=== PATIENT | male | born 1960 | race Caucasian/White ===

== ENCOUNTER 2016-05-21 23:29 | Inpatient (IN) ==
--- NOTE | 2016-05-22 00:27 | Emergency Department Note ---
Casey Valencia Brittany, am scribing for, and in the presence of, Belle Singh DO 00:18. Francisco Valencia Catherine, DO, personally performed the services described in this documentation, ascribed by Josette Peña in my presence, and it is both accurate and complete . Arrival - Arrival Chief Complaint: Abdominal / Flank Pain Stated Complaint: ABD pain ED Nursing Triage Note: Patient transfered from [facility] for ABD pain related to [place]. Mode of Arrival: Stretcher Limitations: No Limitations Source: Patient, RN Notes Reviewed - History of Present Illness HPI Narrative: Patient is a 56 y/o white male presenting to the ED by EMS from [facility] for further evaluation of appendicitis. Patient states that this afternoon he began to have some RLQ abdominal pain. He reports having some associated nausea, but denies any vomiting, fever, or chills with this. Patient notes having two good bowel movements this morning. He states that he has been on a low carb diet lately, but did have a cheat meal today and last ate some cereal at 1400. states that while at [facility], patient had a CT abdomen with and without contrast performed and reports that CT with contrast showed patient may have early appendicitis. Patient as of now states that he is not having any abdominal pain and is not nauseated. Patient states that he had a Cardiac Catheterization with stent placement September of [address] Whitt. Patient denies history of CVA or seizure. Patient is a current everyday smoker. He states that primary care provider is whoever is at [facility] when he goes. Patient has no other complaint/pain. Onset (ago): hour(s) Consistency: intermittent Severity: moderate Severity scale (1-10): 5 Quality: stabbing, sharp Allergies/Adverse Reactions: Allergies Allergy/AdvReac Type Severity Reaction Status Date / Time No Known Allergies Allergy Unverified 05/21/16 23:47 Home Medications: Home Medications Medication Instructions Recorded Confirmed Type Aspirin Chew Tab 81 mg PO DAILY tablet 09/26/14 Rx Atorvastatin [Lipitor] 20 mg PO BEDTIME #30 tablet 09/26/14 Rx Carvedilol [Coreg] 6.25 mg PO BID #60 tablet 09/26/14 Rx Lisinopril 2.5 mg PO DAILY #30 tablet 09/26/14 Rx Ticagrelor [Brilinta] 90 mg PO BID #60 tablet 09/26/14 Rx buPROPion [Wellbutrin] 75 mg PO BID #60 tablet 09/26/14 Rx Aspirin [Ecotrin] 325 mg PO DAILY 05/21/16 05/21/16 History Bupropion HCl [Bupropion HCl Sr] 150 mg PO BID 05/21/16 05/21/16 History Carvedilol 6.25 mg PO BID 05/21/16 05/21/16 History Clobetasol 0.05% Cream [Temovate 1 applic INTRADERM DAILY 05/21/16 05/21/16 History 0.0% Cream] Dexamethasone [Dexamethasone Tab] 0.75 mg PO DAILY 05/21/16 05/21/16 History Meloxicam [Mobic] 15 mg PO DAILY 05/21/16 05/21/16 History Methocarbamol 750 mg PO TID 05/21/16 05/21/16 History Rosuvastatin Calcium [Crestor] 5 mg PO DAILY 05/21/16 05/21/16 History Tramadol HCl [Tramadol Tab] 50 mg PO Q4H PRN 05/21/16 05/21/16 History Review of System - Review of System ROS unobtainable: due to dementia - Review of System Constitutional: Absent: chills, fever Head/Ears/Nose/Throat: Absent: earache Respiratory: Absent: cough, respiratory distress Cardiovascular: Absent: chest pain, palpitations, dyspnea on exertion, orthopnea , syncope Gastrointestinal: Present: abdominal pain, nausea. Absent: vomiting, diarrhea, constipation Genitourinary female: Absent: dysuria, frequency, urgency Musculoskeletal: Absent: back pain Neurological: Absent: headache, weakness Psychiatric: Present: depression. Absent: anxiety Medical,Surgical,& Family Hx - Medical History Cardio: History of: CAD, Hypertension Psychological: History of: Depression Endocrine: History of: Dyslipidemia - Surgical History Cardiac Surgeries: Sugical HX of: Cardiac Catheterization - Family History Family History: Reports;: Family Diabetes, Family Heart Disease - Social History Smoking Status: Current every day smoker Frequency of Alcohol Use: None Type of Drug Use: None Marital Status: Lives With:: Spouse Functional capacity: independent ambulation Exam Vital Signs: Vital Signs Temperature 98.6 F 05/21/16 23:40 Pulse Rate 90 05/21/16 23:40 Respiratory Rate 18 05/21/16 23:40 Blood Pressure 133/71 05/21/16 23:40 O2 Sat by Pulse Oximetry 97 05/21/16 23:40 - General General appearance: alert, in no apparent distress - Head Head exam: Present: atraumatic, normocephalic - Eye Eye exam: Present: normal appearance, PERRL, EOMI - ENT ENT exam: Present: mucous membranes moist, TM's normal bilaterally - Neck Neck exam: Present: normal inspection, full ROM, trachea midline. Absent: tenderness - Chest Chest inspection: Present: normal inspection, symmetric chest wall rise. Absent : tenderness - Respiratory Respiratory exam: Present: normal lung sounds bilaterally. Absent: rales, rhonchi, wheezes - Cardiovascular Cardiovascular exam: Present: regular rate, normal rhythm, normal heart sounds. Absent: murmur, rubs, gallop - Abdominal Exam Abdominal exam: Present: soft, tenderness (RLQ), normal bowel sounds, tenderness at McBurney's Point. Absent: distention, guarding, rebound, diminished bowel sounds - Extremities Exam Extremities exam: Present: normal inspection, full ROM. Absent: tenderness - Back Exam Back exam: Present: normal inspection, full ROM. Absent: tenderness - Neurological Exam Neurological exam: Present: alert, oriented X3 - Psychiatric Psychiatric exam: Present: normal affect - Skin Skin exam: Present: warm, dry, intact, normal color Course Course Narrative: he reports his pain has gone after the toradol. He is only taking the aspirin at this point - no other blood thinners . He is aware that he will be admitted tonight. - Consultations Consultation #1: Dr. Blackwood Time: 00:22 (admission to obs with cardiology consult) Results - Labs Lab Results: I have reviewed the patients labs - Diagnostic Findings Procedure: CT Abdomen and Pelvis: report reviewed by me (early appendicitis) Disposition Clinical Impression: RLQ abdominal pain Case discussed with: patient, patient's family Disposition: Still a Patient Condition: Stable Time of Disposition: 00:27
[2016-05-22] MEDS ORDERED: ONDANSETRON 4 MG/2 ML VIAL IV PRN ×3 (00:29→14:39)
[2016-05-22] MEDS ORDERED: SODIUM CHLORIDE 0.9% 1,000 ML IV SCH (00:30)
[2016-05-22] MEDS ORDERED: HYDROmorphone 2 MG/1 ML VIAL IV PRN ×3 (00:30→14:39)
[2016-05-22] MEDS ORDERED: cefOXitin 1,000 MG in SODIUM CHLORIDE 0.9% 100 ML IV SCH (01:00)
[2016-05-22] MEDS: metroNIDAZOLE INJ 500 MG in PREMIX 1 EACH IV SCH ×3 (03:47→16:34)
[2016-05-22] MEDS ORDERED: ACETAMINOPHEN 325 MG TABLET PO PRN (05:10)
--- NOTE | 2016-05-22 05:26 | General Surg History&Physical ---
Assessment and Plan - Time spent with patient Time spent with patient: Less than 30 minutes (1) RLQ abdominal pain Status: Acute Assessment and plan: Impression: Abdominal pain right lower quadrant possibly secondary to early appendicitis 2. Coronary artery disease status post stent Plan: 1. We'll get cardiology to look at him and clear him 2. We'll plan surgery later today once cardiology has seen. Current Visit: Yes History of Present Illness Chief complaint: onset of abdominal pain right lower quadrant possible early appendicitis History of present illness: Ms. Schultz is a 56 year old female white who essentially been in pretty good health except 2 years ago had to undergo a stent placement for early myocardial infarction done by Dr. Whitt. He was initially on an antiplatelet medication but has been taken off that is just on aspirin now. He apparently has been doing pretty well even ovaries had a gallbladder removed 2 years ago also. Yesterday he had the gradual onset of abdominal pain that got worse primarily in the right lower quadrant area. He was seen in [facility] where studies there showed a white count of 14,[address] scan was initially done for kidney stones which was negative. The CT scan though suggest some stranding about the area of the appendix. He is admitted to put on some IV antibiotics at this time. On examination this morning he remains tender primarily in the right lower quadrant with guarding present. He appears that this is probably truly an appendicitis. I discussed with them the options of IV antibiotics treatment versus surgery and he saw her up for surgery. Because of his coronary artery problem will need to get cardiology to see him and clear him up for surgery. Home Medications Medication Instructions Recorded Confirmed Type Aspirin Chew Tab 81 mg PO DAILY tablet 09/26/14 05/22/16 Rx Atorvastatin [Lipitor] 20 mg PO BEDTIME #30 tablet 09/26/14 05/22/16 Rx Carvedilol [Coreg] 6.25 mg PO BID #60 tablet 09/26/14 05/22/16 Rx Lisinopril 2.5 mg PO DAILY #30 tablet 09/26/14 05/22/16 Rx Ticagrelor [Brilinta] 90 mg PO BID #60 tablet 09/26/14 05/22/16 Rx buPROPion [Wellbutrin] 75 mg PO BID #60 tablet 09/26/14 05/22/16 Rx Aspirin [Ecotrin] 325 mg PO DAILY 05/21/16 05/21/16 History Bupropion HCl [Bupropion HCl Sr] 150 mg PO BID 05/21/16 05/21/16 History Carvedilol 6.25 mg PO BID 05/21/16 05/21/16 History Clobetasol 0.05% Cream [Temovate 1 applic INTRADERM DAILY 05/21/16 05/21/16 History 0.0% Cream] Dexamethasone [Dexamethasone Tab] 0.75 mg PO DAILY 05/21/16 05/21/16 History Meloxicam [Mobic] 15 mg PO DAILY 05/21/16 05/21/16 History Methocarbamol 750 mg PO TID 05/21/16 05/21/16 History Rosuvastatin Calcium [Crestor] 5 mg PO DAILY 05/21/16 05/21/16 History Tramadol HCl [Tramadol Tab] 50 mg PO Q4H PRN 05/21/16 05/21/16 History Allergies Allergy/AdvReac Type Severity Reaction Status Date / Time No Known Allergies Allergy Unverified 05/21/16 23:47 Medical,Surgical,& Family Hx - Medical History Cardio: History of: CAD (stent placed 09/24/2014), Hypertension Psychological: History of: Depression Endocrine: History of: Dyslipidemia Respiratory: History of: COPD Musculoskeletal: History of: Musculoskeletal Problems (arthritis possibly appointment with user support specialist june/2016) - Surgical History Cardiac Surgeries: Sugical HX of: Cardiac Catheterization HEENT Surgeries: Patient denies: Tonsilectomy & Adenoidectomy (tonsilectomy) Abdominal Surgeries: Surgical HX of: Cholecystectomy (APR 22 2014) Orthopedic Surgeries: Surgical HX of;: Orthopedic Surgery (carpal tunnel bilateral wrists) - Family History Family History: Reports;: Family Cancer (mother breast cancer), Family Diabetes (father), Family Heart Disease (father), Family Hematology (father), Family Hypertension (father), Family Stroke (mother) - Social History Smoking Status: Current every day smoker Frequency of Alcohol Use: None Type of Drug Use: None Exam - Constitutional Vitals: Period Temp Pulse Resp BP Sys/Corral Pulse Ox Last 24 Hr 97.8 F 78 14 131/74 93 General appearance: no acute distress - Head Head exam: Present: normal inspection - ENT ENT exam: Present: normal exam - Neck Neck exam: Present: normal inspection - Respiratory Respiratory exam: Present: clear to auscultation bilaterally, rales - Cardiovascular Cardiovascular exam: Present: RRR - GI/Abdominal GI/Abdominal exam: Present: guarding (right lower quadrant), hypoactive bowel sounds, tenderness (right lower quadrant), soft. Absent: distended - Extremities Exam Extremities exam: Present: normal inspection - Back Exam Back exam: Present: normal inspection - Neurological Exam Neurological exam: Present: alert, oriented X3, CN II-XII intact - Skin Skin exam: Present: normal color, warm, dry 12 point system: reviewed and no additional remarkable complaints except as stated Quality Measures - VTE Contraindication to Pharmacological VTE Prophylaxis: High Risk of Bleeding
--- NOTE | 2016-05-22 05:45 | EKG Report ---
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
[2016-05-22] MEDS: DEXTROSE 5% NACL 0.45% 1,000 ML IV SCH ×3 (07:21→23:33)
[2016-05-22 08:58] LABS: Basophils # 0.1 10*3/uL (0.0-0.2); Basophils % 0.6 % (0.0-0.8); Eosinophils # 0.2 10*3/uL (0.0-0.87); Hematocrit 44.3 VOL% (35.7-47.0); Hemoglobin 14.5 GM/DL (12.0-16.0); Immature Granulocytes % 0.3 %; Immature Granulocytes Absolute 0.03 #; Lymphocytes % 28.7 % (21.3-54.2); Mean Corpuscular HGB Conc 32.7 GM/DL (32-36); Mean Corpuscular Hemoglobin 29 PG (27-34); Mean Corpuscular Volume 87.2 FL (87-102); Mean Platelet Volume 11.3 FL (9.6-12.0); Monocytes # 0.9 10*3/uL (0.11-0.8); Monocytes % 8.6 % (1.7-12.7); Neutrophils # 6.2 10*3/uL (1.4-7.4); Neutrophils % 59.8 % (38.7-73.9); Platelet Count 160 T/CUMM (130-400); Red Blood Count 5.08 MC/CUMM (3.8-5.5); Red Cell Distribution Width 13.5 % (9.3-17.3); White Blood Count 10.3 T/CUMM (4-12)
[2016-05-22] MEDS ORDERED: PANTOPRAZOLE 40 MG VIAL IV SCH (09:00)
[2016-05-22 09:22] LABS: Calcium 8.8 MG/DL (8.5-10.1); Osmolality,Calculated 287.8 MOS/KG (273-304); Potassium 4.1 MMOL/L (3.5-5.1)
[2016-05-22] MEDS: DEXAMETHASONE 0.5 MG TABLET PO SCH (09:42)
[2016-05-22] MEDS: buPROPion 75 MG TABLET PO SCH ×2 (09:43→21:56)
--- NOTE | 2016-05-22 09:50 | XRay Report ---
History: Respiratory preop evaluation. Appendicitis Date: 05/22/2016 Study: Chest x-ray AP portable Comparison exam: Chest x-ray 05/21/2016 The cardiomediastinal silhouette and pulmonary vasculature are unremarkable. There is some minor strandy subsegmental atelectasis in the right lung base. The lungs and pleural spaces are otherwise clear. Osseous structures are unchanged. Impression: Mild strandy subsegmental atelectasis right lung base. Otherwise unremarkable and unchanged PROCEDURE INTERPRETED AT [facility] DEPARTMENT OF RADIOLOGY Final Report Signed by: Dr. Christina Duke
[2016-05-22] MEDS: CARVEDILOL 6.25 MG TABLET PO SCH ×2 (10:07→21:56)
[2016-05-22] MEDS: LISINOPRIL 2.5 MG TABLET PO SCH (10:07)
--- NOTE | 2016-05-22 10:36 | Cardiology Consult Note ---
Assessment and Plan (1) Coronary artery disease Status: Chronic Assessment and plan: Intracoronary stent placed RCA September 2014 since is done well and is on aspirin and other medication. He's had no symptomatology for angina is very active. Current Visit: Yes (2) Pre-operative cardiovascular examination Status: Acute Assessment and plan: This patient for possible appendectomy would be at low cardiovascular risk. Current Visit: Yes (3) Tobacco abuse Status: Chronic Assessment and plan: Unfortunately continues to smoke and we discussed this. Current Visit: Yes (4) Abdominal pain Status: Acute Assessment and plan: Possible underlying appendicitis. Current Visit: Yes History of Present Illness - Data of Consult Patient: known to practice within the last 3 years Consult date: 05/22/16 Requesting Physician: Kunal Blackwood - Consult Narrative Reason for consult: preoperative evaluation History of present illness: Ms. Schultz is a 56 year old female known coronary disease having had stent RCA by Dr. Dr. Whitt September 2014. He was treated with dual antiplatelet therapy for year. He has now been on dual antiplatelet therapy for a long time but remains on aspirin. The patient is very active at work but does not exercise. He's had no angina or anginal equivalent. He's had no heart failure symptoms of PND orthopnea or edema. He's had no syncope or near syncope or palpitations. He's generally been in good health until having abdominal pain yesterday the right lower quadrant with a question of possible appendicitis with appendectomy as a possibility. His ECG does not reveal any acute changes. He is now pacific ST-T abnormalities. This patient would be at low cardiac risk based on his present clinical status for planned abdominal surgery. No further cardiac evaluation is indicated prior to his surgery. CC: Kunal Blackwood MD - Home Medications and Allergies Home Medications: Home Medications Medication Instructions Recorded Confirmed Type Aspirin Chew Tab 81 mg PO DAILY tablet 09/26/14 05/22/16 Rx Atorvastatin [Lipitor] 20 mg PO BEDTIME #30 tablet 09/26/14 05/22/16 Rx Carvedilol [Coreg] 6.25 mg PO BID #60 tablet 09/26/14 05/22/16 Rx Lisinopril 2.5 mg PO DAILY #30 tablet 09/26/14 05/22/16 Rx Ticagrelor [Brilinta] 90 mg PO BID #60 tablet 09/26/14 05/22/16 Rx buPROPion [Wellbutrin] 75 mg PO BID #60 tablet 09/26/14 05/22/16 Rx Aspirin [Ecotrin] 325 mg PO DAILY 05/21/16 05/21/16 History Bupropion HCl [Bupropion HCl Sr] 150 mg PO BID 05/21/16 05/21/16 History Carvedilol 6.25 mg PO BID 05/21/16 05/21/16 History Clobetasol 0.05% Cream [Temovate 1 applic INTRADERM DAILY 05/21/16 05/21/16 History 0.0% Cream] Dexamethasone [Dexamethasone Tab] 0.75 mg PO DAILY 05/21/16 05/21/16 History Meloxicam [Mobic] 15 mg PO DAILY 05/21/16 05/21/16 History Methocarbamol 750 mg PO TID 05/21/16 05/21/16 History Rosuvastatin Calcium [Crestor] 5 mg PO DAILY 05/21/16 05/21/16 History Tramadol HCl [Tramadol Tab] 50 mg PO Q4H PRN 05/21/16 05/21/16 History Allergies/Adverse Reactions: Allergies Allergy/AdvReac Type Severity Reaction Status Date / Time No Known Allergies Allergy Unverified 05/21/16 23:47 12 point system: reviewed and no additional remarkable complaints except as stated Review of systems: Constitutional: Denies anorexia, chills, fatigue, fever, frequent falls, night sweats, weight gain, weight loss Eyes: Denies visual changes or loss of vision Ears: Denies decreased hearing, vertigo Nose, mouth and throat: Denies dysphagia, epistaxis, headaches, neck pain, tongue swelling, Neck: Denies thyromegaly or masses. No stiffness. Cardiovascular: as per HPI Respiratory: Denies cough, dyspnea, hemoptysis, dyspnea on exertion, wheezing, snoring Gastrointestinal: Complains of abdominal pain as discussed in history present illness with possible appendicitis. Denies constipation, dyspepsia, dysphagia, hematemesis, hematochezia, melena, nausea, vomiting Genitourinary: Denies dysuria, hematuria, nocturia Musculoskeletal: Denies arthralgias, joint swelling, muscle weakness, myalgias Neurological: denies abnormal gait, abnormal speech, confusion, convulsions, frequent falls, headaches, memory loss, syncope Psychiatric: Denies anxiety, confusion, depression Endocrine: Denies cold intolerance, fatigue, heat intolerance Hematologic/Lymphatic: Denies easy bleeding, easy bruising Dermatologic: Denies Rash, itching, shingles Medical,Surgical,& Family Hx - Medical History Cardio: History of: CAD (stent placed 09/24/2014), Hypertension Psychological: History of: Depression Endocrine: History of: Dyslipidemia Respiratory: History of: COPD Musculoskeletal: History of: Musculoskeletal Problems (arthritis possibly appointment with first assistant june/2016) - Surgical History Cardiac Surgeries: Sugical HX of: Cardiac Catheterization HEENT Surgeries: Patient denies: Tonsilectomy & Adenoidectomy (tonsilectomy) Abdominal Surgeries: Surgical HX of: Cholecystectomy (APR 22 2014) Orthopedic Surgeries: Surgical HX of;: Orthopedic Surgery (carpal tunnel bilateral wrists) - Family History Family History: Reports;: Family Cancer (mother breast cancer), Family Diabetes (father), Family Heart Disease (father), Family Hematology (father), Family Hypertension (father), Family Stroke (mother) - Social History Smoking Status: Current every day smoker Frequency of Alcohol Use: None Type of Drug Use: None Physical Examination Vital Signs Temp Pulse Resp BP 98.1 F 85 18 127/80 05/21/16 23:29 05/21/16 23:29 05/21/16 23:29 05/21/16 23:29 Other: General appearance: normal weight, no acute distress Head exam: normal inspection, atraumatic Eye exam: Pupils are equal and reactive. EOMI. There is no trauma. Ear exam: Anatomically normal. Normal auditory acuity to conversation. Oral exam: No significant oral lesions. Neck exam: normal inspection no JVD. No carotid bruit. Trachea is in midline. Respiratory exam: clear to auscultation bilaterally posteriorly and anteriorly with good air movement. No rales, rhonchi or wheezes. Cardiovascular exam: regular rate and rhythm, no murmur or gallop or rub. No precordial lift. No bruits over the major arteries. Chest wall/torso: Anatomically normal. No tenderness, deformity Peripheral Pulses: 2+ throughout. GI/Abdominal exam: normal bowel sounds, soft but has tenderness with palpation. Musculoskeletal/Extremities exam: normal inspection without edema or cyanosis. No deformities or trauma. Neurological exam: alert, oriented X3. There is no gross neurologic deficits. Psychiatric exam: normal affect, normal mood. Cognitive function is grossly intact. Skin exam: normal color, warm. No rashes or other skin lesions. Result/EKG - Labs CBC & BMP: 05/22/16 08:33 05/22/16 08:33 Labs: Laboratory Results - last 24 hr 05/22/16 05/22/16 08:33 08:33 WBC 10.3 RBC 5.08 Hgb 14.5 Hct 44.3 MCV 87.2 MCH 29 MCHC 32.7 RDW 13.5 Plt Count 160 MPV 11.3 Neut % (Auto) 59.8 Lymph % (Auto) 28.7 [place] % (Auto) 8.6 Eos % (Auto) 2.0 Baso % (Auto) 0.6 Neut # (Auto) 6.2 Lymph # (Auto) 3.0 [place] # (Auto) 0.9 H Eos # (Auto) 0.2 Baso # (Auto) 0.1 Immature Gran % 0.3 Nucleated RBC % 0.0 Immature Gran # 0.03 Nucleated RBCs # 0.00 Sodium 144 Potassium 4.1 Chloride 110 H Carbon Dioxide 26 Anion Gap 12.1 BUN 15 Creatinine 0.80 GFR Calculation 100 BUN/Creatinine Ratio 18.00 Glucose 114 H Calculated Osmolality 287.8 Calcium 8.8 - Impressions Impressions: ECG with normal sinus rhythm with nonspecific ST flattening essentially normal study. Quality Measures - VTE Contraindication to Pharmacological VTE Prophylaxis: High Risk of Bleeding
[2016-05-22] MEDS ORDERED: BUPIVACAINE MPF 0.25% /EPI 30 ML VIAL ONE (13:02)
[2016-05-22] MEDS ORDERED: LIDOCAINE 2% 5 ML VIAL ONE (13:21)
[2016-05-22] MEDS ORDERED: NEOSTIGMINE 10 MG/10 ML VIAL ONE (13:21)
[2016-05-22] MEDS: LACTATED RINGERS 1,000 ML IV SCH ×2 (13:21→14:41)
[2016-05-22] MEDS ORDERED: KETOROLAC 30 MG/1 ML VIAL ONE (13:21)
[2016-05-22] MEDS ORDERED: PHENYLEPHRINE 1 MG/10 ML SYRINGE IV ONE (13:21)
[2016-05-22] MEDS ORDERED: ONDANSETRON 4 MG/2 ML VIAL ONE (13:21)
[2016-05-22] MEDS ORDERED: ROCURONIUM 100 MG/10 ML VIAL IV ONE (13:21)
[2016-05-22] MEDS ORDERED: GLYCOPYRROLATE 0.4 MG/2 ML VIAL ONE (13:21)
[2016-05-22] MEDS ORDERED: DEXAMETHASONE 10 MG/1 ML VIAL ONE (13:21)
[2016-05-22] MEDS ORDERED: PROPOFOL 200 MG/20 ML VIAL IV ONE (13:21)
[2016-05-22] MEDS ORDERED: TISSUE ADHESIVE 1 EACH APPLICATOR TOP ONE (14:01)
--- NOTE | 2016-05-22 14:28 | Operative Note ---
Date of procedure: 05/22/16 Pre-op diagnosis: abdominal pain probable appendicitis Post-op diagnosis: other (acute appendicitis) Procedure: Operative note: Preoperative diagnosis: Abdominal pain probably secondary to early appendicitis Postop diagnosis: Acute appendicitis of the distal one third of the appendix Procedure: Lap scopic appendectomy. Surgeon Dr. Blackwood Production Inspector Lyndsay Faustin [facility] Anesthesia was general with local Brief history: 56-year-old white male comes in with the onset of abdominal pain gradual and now tender with localization in the right lower quadrant. Initial CT was unremarkable but had a suggestion of early stranding possible appendicitis. His white count 14,000 and he was tender with localization in the right lower quadrant. Because of the stent that he had 2 years ago we had cardiology see him and they cleared him and I felt we needed go ahead surgery because he seemed to typical of appendicitis and he did not want favor antibiotic treatment. Procedure: Patient supine position prepped and draped in a sterile fashion Timeout and antibiotics completed approach the area of the umbilicus where we infiltrated just above with the local anesthetic. With knife we made an incision to the skin subcutaneous tissue down to the level of the fascia. I incised the fascia and carefully dissected until I entered the. No cavity under direct vision. 5 mm trocar was placed in the abdomen was filled with 3 L of CO2. Once that was done we put her scope in began look ran nothing remarkable could easily be seen at this point time couldn't see the appendix no fluid present at this time no unusual inflammation or adhesions present. At that point we put him in Trendelenburg and we placed another 5 mm trocar at the mid hypogastric area under direct vision. An it with an atraumatic grasper I began to move the cecum around it we could see the tip of the appendix in the right lower quadrant. It appeared to be twisted somewhat and had bound down to the retroperitoneal space. At that point we placed a 12 mm trocar in at the anterior axillary line under direct vision and out cavus chance to grasp indifferently to elevated up at that point I had to go ahead and take scissors and dissected the peritoneal attachments lateral to the appendix and ordered to mobilize it. Once these it specimens were mobile were cut and the appendix mobilized up I was able to go across the mesoappendix twice with a vascular any GI stapler to divide the mesoappendix. With that done we went across the base of the appendix with a blue and a GI stapler. We then placed the appendix in the Endo Catch bag and brought it out through the lateral port. Went back in washed irrigated and no unusual bleeding was seen or fluid pockets at this time. With that we then pulled the lateral port and closed that with an Endo Close of 0 Monocryl. Once that was closed we pulled our other ports we close the umbilical port with interrupted 0 Monocryl suture and we closed the subcutaneous tissue 3-0 Vicryl closed the skin running 4-0 Monocryl with Dermabond applied. Patient was taken recovery room. Estimated blood loss 10 mL Sponge count correct 2 Drains none Complications none Condition stable satisfactory Anesthesia: GETA, local (0.25% Marcaine with epinephrine mixed [id number] 1% Xylocaine plain into the trocar sites) Surgeon / Physician: Kunal Blackwood Production Inspector: Lyndsay Faustin Estimated blood loss: other (10 mL) Specimens: other (appendix) Condition: stable Disposition: floor Results - Labs CBC & BMP: 05/22/16 08:33 05/22/16 08:33 Discharge Plan - Discharge Medications No Action Aspirin Chew Tab 81 mg PO DAILY tablet Ticagrelor [Brilinta] 90 mg PO BID #60 tablet Carvedilol [Coreg] 6.25 mg PO BID #60 tablet Atorvastatin [Lipitor] 20 mg PO BEDTIME #30 tablet Lisinopril 2.5 mg PO DAILY #30 tablet buPROPion [Wellbutrin] 75 mg PO BID #60 tablet Tramadol HCl [Tramadol Tab] 50 mg PO Q4H PRN PRN Reason: Pain Rosuvastatin Calcium [Crestor] 5 mg PO DAILY Meloxicam [Mobic] 15 mg PO DAILY Dexamethasone [Dexamethasone Tab] 0.75 mg PO DAILY Clobetasol 0.05% Cream [Temovate 0.0% Cream] 1 applic INTRADERM DAILY Carvedilol 6.25 mg PO BID Aspirin [Ecotrin] 325 mg PO DAILY Methocarbamol 750 mg PO TID Bupropion HCl [Bupropion HCl Sr] 150 mg PO BID - Follow Up or Referral - Forms/Instructions
[2016-05-22] MEDS ORDERED: ALBUTEROL 2.5 MG/3 ML NEB RESP TX ONE (14:34)
--- NOTE | 2016-05-22 14:35 | Anesthesia ---
Anesthesia Post OP - Post Ansesthetic Evaluation Resp: other (coughing, hob elevated 30, albuterol resp. neb ordered)
[2016-05-22] MEDS ORDERED: SEVOFLURANE 1 UNIT/15 MINUTE INH ONE (14:38)
[2016-05-22] MEDS ORDERED: MIDAZOLAM 2 MG/2 ML VIAL ONE (14:38)
[2016-05-22] MEDS ORDERED: HYDROmorphone 2 MG/1 ML VIAL ONE (14:38)
[2016-05-22] MEDS ORDERED: fentaNYL 100 MCG/2 ML VIAL ONE (14:39)
[2016-05-22] MEDS: KETOROLAC 15 MG/1 ML VIAL IV SCH ×2 (16:29→21:51)
[2016-05-22] MEDS: CLOBETASOL 0.05% CREAM 15 GM TUBE TOP SCH (21:46)
[2016-05-23] MEDS: metroNIDAZOLE INJ 500 MG in PREMIX 1 EACH IV SCH ×2 (00:22→09:43)
[2016-05-23] MEDS: KETOROLAC 15 MG/1 ML VIAL IV SCH ×2 (02:45→09:00)
[2016-05-23 05:25] LABS: Basophils % 0.3 % (0.0-0.8); Eosinophils % 0.1 % (0.00-10.9); Hematocrit 41.1 VOL% (42.0-52.0); Hemoglobin 13.6 GM/DL (14.0-18.0); Immature Granulocytes % 0.4 %; Immature Granulocytes Absolute 0.04 #; Lymphocytes % 19.6 % (21.2-54.2); Mean Corpuscular HGB Conc 33.1 GM/DL (32-36); Mean Corpuscular Hemoglobin 29 PG (27-34); Mean Corpuscular Volume 86.9 FL (87-102); Mean Platelet Volume 12.2 FL (9.6-12.0); Monocytes # 0.7 10*3/uL (0.11-0.8); Monocytes % 6.4 % (1.7-12.7); Neutrophils # 7.4 10*3/uL (1.4-7.4); Neutrophils % 73.2 % (38.7-73.9); Platelet Count 158 T/CUMM (130-400); Red Blood Count 4.73 MC/CUMM (3.8-5.5); Red Cell Distribution Width 13.7 % (9.3-17.3); White Blood Count 10.1 T/CUMM (4-12)
[2016-05-23 06:00] LABS: Osmolality,Calculated 304.3 MOS/KG (273-304); Potassium 4.3 MMOL/L (3.5-5.1)
[2016-05-23 06:05] LABS: Calcium 7.6 MG/DL (8.5-10.1)
--- NOTE | 2016-05-23 07:06 | EKG Report ---
Stationary ECG Study [facility] Test Date: 05/23/2016 7:05:08 AM Pat Name: MORENITA TINSLEY Department: Room: 324 Gender: M Relay Man: ELMER : 1960 Requested by: Kunal Blackwood Order Number: [id number] Reading MD: SADIE VITAL Intervals [place] Rate: 57 P: 67 HI: 177 QRS: 54 QRSD: 106 T: 76 QT: 396 QTc: 390 Interpretive Statements SINUS RHYTHM Electronically Signed On 05-26-16 07:55:47 TRANSPORT TANK TECHNICIAN by SADIE VITAL [email or web address]
--- NOTE | 2016-05-23 07:06 | Anesthesia ---
Anesthesia Post OP - Post Ansesthetic Evaluation Patient seen in post op: Yes Resp: within normal limits CV: within normal limits Mental: within normal limits Temp: within normal limits [id number]: within normal limits Nausea and Vomiting: within normal limits Pain: within normal limits
[2016-05-23] MEDS: DEXTROSE 5% NACL 0.45% 1,000 ML IV SCH (07:41)
[2016-05-23 08:46] VITALS: BP 130/65
[2016-05-23] MEDS: buPROPion 75 MG TABLET PO SCH (09:00)
[2016-05-23] MEDS ORDERED: ENOXAPARIN 40 MG/0.4 ML SYRINGE SUBCUT SCH (09:00)
[2016-05-23] MEDS: CLOBETASOL 0.05% CREAM 15 GM TUBE TOP SCH (09:00)
[2016-05-23] MEDS: CARVEDILOL 6.25 MG TABLET PO SCH (09:00)
[2016-05-23] MEDS: DEXAMETHASONE 0.5 MG TABLET PO SCH ×2 (09:00→09:03)
[2016-05-23] MEDS ORDERED: PANTOPRAZOLE 40 MG TABLET PO SCH (09:00)
[2016-05-23] MEDS: LISINOPRIL 2.5 MG TABLET PO SCH (09:01)
--- NOTE | 2016-05-23 09:08 | Discharge Summary ---
Hospital Course - Hospital Course Hospital Course: Discharge Summary 05/23/16 Primary admitting Diagnosis: 1. Right lower quadrant pain secondary to early appendicitis 2. Coronary artery disease, s/p stent placement in 2014 3. Dyslipidemia by history 4. Current everyday smoker Discharge diagnoses: Same Procedure: Laparoscopic appendectomy Consultants: Cardiology-Dr Cristhian Genao Brief Summary-This 56 year old male patient came to the ED via EMS after acute onset of RLQ abdominal pain on 05/21/16. He presented to [place] when this did not improve, and CT at that facility showed evidence for appendicitis. Upon arrival, his WBC was 9,000. Abdomen was localized and appropriately tender in the right lower quadrant. It was felt that, given his cardiac history, we needed cardiology to evaluate prior to general anesthesia, so a consultation was obtained. Of note, he was no longer on any antiplatelet medication for the stent protection at this time. Once cleared, he was taken to surgery on 05/22/16 , where an acute appendix was identified. There was mild localized peritonitis but no perforation or abscess. Postoperatively he has done very well, with minimal discomfort. Labs and VS have remained stable, he is tolerating a regular diet this morning and is ambulating about the room unassisted. Abdomen and wounds are stable, and he would like to go home. He was given local care and activity instructions, and we will add a prescription for colace and [place], along with appointment to follow up in 10-14 days unless he has problems. - Time spent with patient Time with patient DS: Less than 30 minutes Diagnosis - Discharge Diagnosis (1) Appendicitis, acute Status: Acute Specialty Discharge - Follow Up or Referrals Follow up with: Kunal Blackwood MD [Physician] - 1 Week (See Dr Blackwood or Lyndsay in 7-10 days) Discharge Plan - Discharge Data Disposition: Disch To Home/Self Care Condition at Discharge: Stable Discharge Diet: heart healthy Activity: increase activity as tolerated, no lifting Hygiene: may shower Weight Bearing at Discharge: full weight bearing Driving: not for (1 week) Contact your physician if you experience:: fever over 101, Difficulty voiding, Redness or swelling, Nausea/Vomiting, Shortness of breath, Bleeding, pain uncontrolled by pain medications Wound / Dressing Care Instructions: Shower daily with soap & water. Do not use ointments, lotions, or creams over the incisions. Keep clean and allow to air dry; OK to cover with a light dressing or band aid if they rub against your clothes. - Discharge Medications New HYDROcodone/ACETAMIN 7.5-325 [[place] 7.5-325] 1 tablet PO Q6HR #10 tablet Docusate Sodium Cap [Colace Cap] 100 mg PO BEDTIME #30 capsule Continue Aspirin Chew Tab 81 mg PO DAILY tablet Ticagrelor [Brilinta] 90 mg PO BID #60 tablet Carvedilol [Coreg] 6.25 mg PO BID #60 tablet Atorvastatin [Lipitor] 20 mg PO BEDTIME #30 tablet Lisinopril 2.5 mg PO DAILY #30 tablet buPROPion [Wellbutrin] 75 mg PO BID #60 tablet Tramadol HCl [Tramadol Tab] 50 mg PO Q4H PRN PRN Reason: Pain Rosuvastatin Calcium [Crestor] 5 mg PO DAILY Meloxicam [Mobic] 15 mg PO DAILY Dexamethasone [Dexamethasone Tab] 0.75 mg PO DAILY Clobetasol 0.05% Cream [Temovate 0.0% Cream] 1 applic INTRADERM DAILY Carvedilol 6.25 mg PO BID Aspirin [Ecotrin] 325 mg PO DAILY Methocarbamol 750 mg PO TID Bupropion HCl [Bupropion HCl Sr] 150 mg PO BID - Follow Up or Referral - Forms/Instructions Additional Discharge Instructions: Work excuses if needed Exam - Constitutional Vitals: Period Temp Pulse Resp BP Sys/Corral Pulse Ox Last 24 Hr 97.4 F-99.7 F 67-89 12-20 91-130/43-71 92-98 General appearance: normal weight, no acute distress - Head Head exam: Present: normal inspection - Respiratory Respiratory exam: Present: clear to auscultation bilaterally - Cardiovascular Cardiovascular exam: Present: regular rate and rhythm - GI/Abdominal GI/Abdominal exam: Present: hypoactive bowel sounds, soft, other (Incisions appropriately tender; no drainage or unusual bruising or swelling.). Absent: distended, guarding - Extremities Exam Extremities exam: Present: normal inspection Discharge Results Labs on day of discharge: Labs from last 24 hours 05/23/16 05/23/16 05/23/16 06:15 04:36 04:36 WBC 10.1 RBC 4.73 Hgb 13.6 L Hct 41.1 L MCV 86.9 L MCH 29 MCHC 33.1 RDW 13.7 Plt Count 158 MPV 12.2 H Neut % (Auto) 73.2 Lymph % (Auto) 19.6 L Grand % (Auto) 6.4 Eos % (Auto) 0.1 Baso % (Auto) 0.3 Neut # (Auto) 7.4 Lymph # (Auto) 2.0 Grand # (Auto) 0.7 Eos # (Auto) 0.0 Baso # (Auto) 0.0 Immature Gran % 0.4 Nucleated RBC % 0.0 Immature Gran # 0.04 Nucleated RBCs # 0.00 Sodium 141 Potassium 4.3 Chloride 107 Carbon Dioxide 22 Anion Gap 16.3 H BUN 11 Creatinine 1.10 GFR Calculation 91 BUN/Creatinine Ratio 10.00 Glucose 542 H* POC Glucose 157 H Calculated Osmolality 304.3 H Calcium 7.6 L 05/22/16 08:33 WBC RBC Hgb Hct MCV MCH MCHC RDW Plt Count MPV Neut % (Auto) Lymph % (Auto) Grand % (Auto) Eos % (Auto) Baso % (Auto) Neut # (Auto) Lymph # (Auto) Grand # (Auto) Eos # (Auto) Baso # (Auto) Immature Gran % Nucleated RBC % Immature Gran # Nucleated RBCs # Sodium 144 Potassium 4.1 Chloride 110 H Carbon Dioxide 26 Anion Gap 12.1 BUN 15 Creatinine 0.80 GFR Calculation 100 BUN/Creatinine Ratio 18.00 Glucose 114 H POC Glucose Calculated Osmolality 287.8 Calcium 8.8 DS: Provider Date of admission: 05/22/16 00:27 Primary care physician: . No PCP Attending physician on admission: Kunal Blackwood MD Consults: 05/22/16 00:28 Consult to Physician [CONS] Routine Comment: Consulting Provider: Maxwell Genao Consulting Provider Notified: No When should Consulting Provider be notified: In am Consult to Specialist Group: Cardiology When should Consulting Provider be notified: In am Person Notified: Karen Kamara Date Notified: 05/22/16 Time Notified: 07:40 Discharging clinician: Lyndsay Faustin CNP, R
--- NOTE | 2016-05-24 11:42 | Pathology Report from [facility] ---
ACCESSION # : [id number] PATIENT NAME : Morenita Tinsley ORDERING DR : KATHY COLEMAN MD CLINICAL HX: Appendicitis POST-OP DX: Same SPECIMEN INFO: Appendix GROSS DESCRIPTION: Received in formalin labeled "MORENITA TINSLEY" is an appendix measuring 6.5 x 0.7 cm. The serosa is smooth and kim. The lumen is patent with no fecaliths or perforations seen. Administrator Of Home Health sections are submitted in one cassette. DIAGNOSIS FOR MORENITA TINSLEY: APPENDIX: Acute appendicitis. SERVICE DATE: 05/23/2016 REPORT DATE: 05/24/2016 PATHOLOGIST: Ayla Cristina III, M.D. MTDD
== END 2016-05-23 11:20 | disposition home or self-care (01) | DRG 343 ==
LOC: N.EDINP 23:29 → EDUNIT# 23:29 → EDBD 23:29 → N.ED 23:29 → EDSEX 23:29 → INTOOBSV 23:58 → OBSVTOIN 05-22 00:27 → EDSEX 05-22 00:27 → N.3E 05-22 00:55
PROVIDERS: ADMIT Specialist; ATTEND Specialist

== ENCOUNTER 2016-10-24 05:30 | Inpatient (IN) ==
[2016-10-13 13:35] LABS: Basophils # 0.1 10*3/uL (0.0-0.2); Basophils % 0.6 % (0.0-0.8); Eosinophils # 0.3 10*3/uL (0.0-0.87); Hematocrit 42.8 VOL% (42.0-52.0); Hemoglobin 14.9 GM/DL (14.0-18.0); Immature Granulocytes % 0.5 %; Immature Granulocytes Absolute 0.05 #; Lymphocytes # 4.8 10*3/uL (1.4-4.0); Lymphocytes % 46.2 % (21.2-54.2); Mean Corpuscular HGB Conc 34.8 GM/DL (32-36); Mean Corpuscular Hemoglobin 31 PG (27-34); Mean Corpuscular Volume 89.5 FL (87-102); Mean Platelet Volume 11.3 FL (9.6-12.0); Monocytes # 1.1 10*3/uL (0.11-0.8); Monocytes % 10.5 % (1.7-12.7); Neutrophils % 39.2 % (38.7-73.9); Platelet Count 157 T/CUMM (130-400); Red Blood Count 4.78 MC/CUMM (3.8-5.5); Red Cell Distribution Width 15.3 % (9.3-17.3); White Blood Count 10.3 T/CUMM (4-12)
[2016-10-13 13:39] LABS: Apearance,Urine CLEAR (Clear); Bilirubin,Urine Negative (Negative); Blood, Urine Small mg/dL (Negative); Glucose,Urine (UA) Negative (Negative); Ketones,Urine Negative (Negative); Mucus,Urine Occasional /LPF (Occasional); Nitrite,Urine Negative (Negative); Protein,Urine Negative; RBC,Urine 1 /HPF (0-4); Urine Color Straw (Yellow); Urine Urobilinogen < 2.0 EU/DL (0.2-1.0); WBC,Urine <1 /HPF (0-6)
[2016-10-13 13:44] LABS: Partial Thromboplastin Time 24.6 SECS (0-40)
--- NOTE | 2016-10-13 13:59 | XRay Report ---
Exam: XR chest 2V Date: 10/13/2016 1:17 PM Indication: Respiratory preop evaluation of the chest Comparison: 05/22/2016 Technical: PA lateral Findings: The heart is normal in size. Lungs are clear. The mediastinum and bony structures reveal no acute findings. Minimal ASVD of the aorta. Impression: 1. No acute cardiopulmonary pathology. PROCEDURE INTERPRETED AT [facility] DEPARTMENT OF RADIOLOGY Final Report Signed by: Dr. Ezequiel Golden
[2016-10-13 14:08] LABS: Alanine Aminotransferase 20 U/L (16-61); Alkaline Phosphatase 83 U/L (45-117); Aspartate Amino Transferase 14 U/L (0-37); Bilirubin,Total < 0.39 MG/DL (0.2-1.0); Blood Urea Nitrogen 17 MG/DL (7-18); Calcium 8.8 MG/DL (8.5-10.1); Glucose 85 MG/DL (74-106); Osmolality,Calculated 281.3 MOS/KG (273-304); Potassium 4.4 MMOL/L (3.5-5.1); Sodium 141 MMOL/L (136-145)
[2016-10-24] MEDS ORDERED: VANCOMYCIN INJ 1,000 MG in SODIUM CHLORIDE 0.9% 250 ML IV ONE (06:00)
[2016-10-24] MEDS ORDERED: ceFAZolin 1,000 MG VIAL ONE (06:07)
[2016-10-24] MEDS ORDERED: VANCOMYCIN 1,000 MG VIAL ONE (06:07)
[2016-10-24] MEDS ORDERED: SODIUM CHLORIDE 0.9% 100 ML IV ONE (06:07)
[2016-10-24] MEDS ORDERED: DIAZEPAM 5 MG TABLET PO ONE (06:39)
[2016-10-24] MEDS ORDERED: FAMOTIDINE 20 MG TABLET PO ONE (06:39)
[2016-10-24] MEDS ORDERED: LACTATED RINGERS 1,000 ML IV SCH (07:00)
--- NOTE | 2016-10-24 07:11 | History and Physical Update ---
History and Physical Update - History and Physical H&P was reviewed, the patient examined and there: are no changes in the patients condition since last H&P was completed.
[2016-10-24] MEDS ORDERED: FAMOTIDINE 20 MG TABLET ONE (07:23)
[2016-10-24] MEDS ORDERED: DIAZEPAM 5 MG TABLET ONE (07:23)
[2016-10-24] MEDS ORDERED: TRANEXAMIC ACID 1,000 MG/10 ML VIAL IV ONE (10:31)
[2016-10-24 11:23] LABS: Apearance,Urine CLEAR (Clear); Bilirubin,Urine Negative (Negative); Blood, Urine Negative (Negative); Glucose,Urine (UA) Negative (Negative); Ketones,Urine Negative (Negative); Nitrite,Urine Negative (Negative); Protein,Urine Negative; RBC,Urine 1 /HPF (0-4); Squamous Epithelial Cell,Urine Occasional /HPF (0-10); Urine Color Yellow (Yellow); Urine Specific Gravity 1.012 (1.001-1.035); Urine Urobilinogen < 2.0 EU/DL (0.2-1.0); WBC,Urine <1 /HPF (0-6)
[2016-10-24] MEDS ORDERED: BISACODYL 10 MG SUPP RECTAL PRN (11:24)
[2016-10-24] MEDS ORDERED: TEMAZEPAM 7.5 MG CAPSULE PO PRN (11:24)
[2016-10-24] MEDS ORDERED: diphenhydrAMINE CAP 25 MG CAPSULE PO PRN (11:24)
[2016-10-24] MEDS ORDERED: ONDANSETRON 4 MG/2 ML VIAL IV PRN (11:24)
[2016-10-24] MEDS ORDERED: HYDROmorphone 2 MG/1 ML VIAL IV PRN (11:24)
[2016-10-24] MEDS ORDERED: MAGNESIUM HYDROXIDE SUSP 30 ML UDCUP PO PRN (11:24)
[2016-10-24] MEDS ORDERED: PROMETHAZINE 25 MG/1 ML VIAL IM PRN (11:24)
[2016-10-24] MEDS ORDERED: LACTULOSE 20 GM/30 ML UDCUP PO PRN (11:24)
[2016-10-24] MEDS ORDERED: NALOXONE 0.4 MG/ML VIAL IV PRN (11:24)
[2016-10-24] MEDS ORDERED: DOCUSATE/SENNA 50-8.6 MG TABLET PO PRN (11:27)
[2016-10-24] MEDS ORDERED: PROPOFOL 200 MG/20 ML VIAL IV ONE (11:35)
--- NOTE | 2016-10-24 11:35 | XRay Report ---
History is postop right hip replacement Patient is status post right hip replacement with resulting gross anatomic alignment. Clamps overlie the right upper hip and medial upper thigh Impression: Status post right hip replacement PROCEDURE INTERPRETED AT [facility] DEPARTMENT OF RADIOLOGY Final Report Signed by: Dr. Mary Younger
[2016-10-24] MEDS ORDERED: KETOROLAC 30 MG/1 ML VIAL ONE (11:36)
[2016-10-24] MEDS ORDERED: GLYCOPYRROLATE 0.4 MG/2 ML VIAL ONE (11:36)
[2016-10-24] MEDS ORDERED: SODIUM CHLORIDE 0.9% 200 ML IV ONE (11:36)
[2016-10-24] MEDS ORDERED: MIDAZOLAM 2 MG/2 ML VIAL ONE (11:36)
[2016-10-24] MEDS ORDERED: SODIUM CHLORIDE 0.9% 250 ML IV ONE (11:36)
[2016-10-24] MEDS ORDERED: ACETAMINOPHEN 1,000 MG/100 ML VIAL IV ONE (11:36)
--- NOTE | 2016-10-24 13:19 | Orthopedic Progress Note ---
Orthopedics - Subjective Interval history: nvi comfortable discussed Exam - Constitutional Vitals: Period Temp Pulse Resp BP Sys/Corral Pulse Ox Last 24 Hr 97.2 F-97.7 F 63-74 12-20 94-135/51-85 95-100 Results - Labs CBC & BMP: 10/13/16 13:25 10/13/16 13:25
[2016-10-24] MEDS: HYDROmorphone PCA 30 MG/30 ML SYRINGE IV SCH (13:57)
--- NOTE | 2016-10-24 16:20 | Cardiology Consult Note ---
Simnoe Valencia Vanessa, RN, am scribing for, and in the presence of, Davion Jones MD 16:20. Assessment and Plan - Time spent with patient Time spent with patient: Greater than 30 minutes (Due to assessment, planning, documentation, and medication review) Time spent discussing smoking cessation with patient: 3 to 10 minutes (1) Status post total hip replacement, right Status: Acute Assessment and plan: He appears to be doing well from a cardiac standpoint. We will follow along with you perioperatively. Check EKG in the morning. Current Visit: Yes (2) Coronary artery disease Status: Chronic Assessment and plan: He is not having any anginal complaint. He did complete 1 year of dual antiplatelet therapy post coronary artery stent placement in 2014, and he is now maintained with ASA. Statin continued also. Current Visit: No (3) History of CA (myocardial infarction) Status: Acute Assessment and plan: History of NSTEMI in September 2014 and is now status post right coronary artery stenting. Clinically, this is stable. He is not having any anginal complaint. Current Visit: Yes (4) Smoker Status: Chronic Assessment and plan: Continue bupropion. Reports desire to quit smoking during this admission. Discussed merits of tobacco cessation and alternatives for tobacco use. Current Visit: No (5) Dyslipidemia Status: Chronic Assessment and plan: Statin continued perioperatively. Current Visit: Yes (6) Hypertension Status: Chronic Assessment and plan: Overall, stable. Will adjust regimen as indicated. Current Visit: Yes (7) COPD (chronic obstructive pulmonary disease) Status: Chronic Assessment and plan: Appears stable. Continue current plan of care. Current Visit: No History of Present Illness - Data of Consult Patient: known to practice within the last 3 years Consult date: 10/24/16 Requesting Physician: Jose D Nash Jr. 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 Schultz is a 56 year old white male with risk factor significant for: hypertension, hyperlipidemia, known history of CAD, tobaccoism, sedentary lifestyle, and obesity. He is status post NSTEMI and subsequent stenting of proximal right coronary artery in September 2014. He has not had any anginal complaint since that time. He was last seen by Dr. Whitt at [facility] on October 03 for preoperative cardiovascular exam prior to plan total right hip replacement. No complaints and it was noted patient's last stress test in September 2015 which revealed no ischemia or EKG changes, and he had no symptoms. Low risk for intraoperative cardiovascular event. Patient presented to [facility] unit this morning for elective right hip replacement due to osteoarthritis. He is now recovering and MedSurg room, and cardiology has been consulted for perioperative medical management. Patient is awake and alert, but somewhat drowsy this afternoon. is present with him at bedside. Patient is not experiencing any chest pain, shortness of breath, or other anginal complaint. He is not having any pain related to surgical procedure at this time. Pain adequately controlled with Dilaudid SUBSURFACE AUGMENTEE ELINT OPERATOR. Does have some numbness and tingling of right lower extremity still but able to move all extremities. No nausea or vomiting. BP 125/75. Pulse 60s and regular. Overall, from a cardiac standpoint, he appears to be stable at this time. Current Medications Hydrocodone Bitart/Acetaminophen ([place] 7.5-325) 2 tablet PO Q4H PRN PRN Reason: Moderate Pain unrelieved by 1 Hydrocodone Bitart/Acetaminophen ([place] 7.5-325) 1 tablet PO Q4H PRN PRN Reason: Pain Moderate (4-7) Aspirin () 325 mg PO DAILY TING Bisacodyl (Dulcolax Supp) 10 mg RECTAL DAILY PRN PRN Reason: Constipation Bupropion HCl (Wellbutrin Sr) 150 mg PO BID TING Carvedilol (Coreg) 6.25 mg PO BID [facility] Clobetasol Propionate (Temovate Cream) 1 applic TOP DAILY [facility] Diphenhydramine HCl (Benadryl Cap) 25 mg PO Q6H PRN PRN Reason: Itching Docusate Sodium (Colace Cap) 100 mg PO BID [facility] Folic Acid () 1 mg PO DAILY [facility] Fondaparinux (Arixtra) 2.5 mg SUBCUT Q24H TING Hydromorphone HCl (Dilaudid Inj) 1 mg IV Q3H PRN PRN Reason: Pain Severe (8-10) Hydromorphone/Sodium Chloride (Dilaudid Microsoft Solutions Architect) 30 mg IV SUBSURFACE AUGMENTEE ELINT OPERATOR TING PRN Reason: Protocol Last Admin: 10/24/16 13:57 Dose: 30 mg Cefazolin Sodium/Dextrose 2, (000 mg/ Premix) 50 mls @ 100 mls/hr IV Q8H TING Stop: 10/24/16 23:54 Lactulose (Chronulac) 30 gm PO DAILY PRN PRN Reason: Constipation Magnesium Hydroxide (Milk Of Magnesia) 30 ml PO Q6H PRN PRN Reason: Constipation Naloxone HCl (Narcan) 0.04 mg IV Q2M PRN PRN Reason: Opiate Reversal Adalimumab [Humira] (40 Mg) 40 mg SQ Q14D [facility] Ondansetron HCl (Zofran Inj) 4 mg IV Q4H PRN PRN Reason: Nausea/Vomiting Promethazine HCl (Phenergan Inj) 25 mg IM Q6H PRN PRN Reason: Nausea/Vomiting Rosuvastatin Calcium (Crestor) 5 mg PO DAILY [facility] Selenium () 100 mcg PO DAILY [facility] Senna/Docusate Sodium (Senokot S) 1 tablet PO DAILY PRN PRN Reason: Constipation Temazepam (Restoril) 7.5 mg PO BEDTIME PRN PRN Reason: Sleep CC: Jose D Nash Jr., MD - Home Medications and Allergies Home Medications: Home Medications Medication Instructions Recorded Confirmed Type Carvedilol [Coreg] 6.25 mg PO BID #60 tablet 09/26/14 10/24/16 Rx Aspirin [Ecotrin] 325 mg PO DAILY 05/21/16 10/24/16 History Clobetasol 0.05% Cream [Temovate 1 applic TOP DAILY 05/21/16 10/24/16 History 0.0% Cream] Rosuvastatin Calcium [Crestor] 2.5 mg PO MOWEFR 05/21/16 10/24/16 History buPROPion HCl [Bupropion HCl Sr] 150 mg PO BID 05/21/16 10/24/16 History Adalimumab [Humira] 40 mg SQ Q14D 10/13/16 10/24/16 History Folic Acid Tab 1 mg PO DAILY 10/13/16 10/24/16 History Methotrexate Tab 15 mg PO Q7DAY 10/13/16 10/24/16 History Selenium [Selenium Tab] 100 mcg PO BID 10/13/16 10/24/16 History Sennosides/Docusate Sodium [Stool 1 each PO DAILY PRN 10/13/16 10/24/16 History Softener Tablet] Allergies/Adverse Reactions: Allergies Allergy/AdvReac Type Severity Reaction Status Date / Time No Known Allergies Allergy Verified 10/24/16 07:12 - Constitutional Constitutional: Absent: anorexia, excessive sweating, fatigue, fever(s), frequent falls, increased appetite, lethargy, stops breathing during sleep, weakness, weight gain, weight loss - EENT Eyes: Absent: blurry vision Ears: Absent: decreased hearing Nose, mouth and throat: Absent: epistaxis, lip swelling, sore throat, throat swelling, tongue swelling - Cardiovascular Cardiovascular: Present: as per HPI. Absent: chest pain at rest, chest pain with activity, diaphoresis, dyspnea, dyspnea on exertion, edema, radiating jaw, neck or arm pain, lightheadedness, orthopnea, palpitations - Respiratory Respiratory: Absent: cough, dyspnea, hemoptysis, dyspnea on exertion, change in phlegm color - Gastrointestinal Gastrointestinal: Absent: abdominal pain, constipation, diarrhea, dysphagia, early satiety, melena, nausea, vomiting - Genitourinary Genitourinary: Absent: difficulty urinating, dysuria, flank pain, hematuria - Musculoskeletal Musculoskeletal: Absent: arthralgias - Neurological Neurological: Present: as per HPI, abnormal gait, numbness. Absent: confusion, dizziness, syncope, tremor(s) - Psychiatric Psychiatric: Absent: anxiety - Endocrine Endocrine: Absent: cold intolerance, fatigue, heat intolerance - Hematologic/Lymphatic Hematologic/Lymphatic: Absent: easy bleeding, easy bruising Medical,Surgical,& Family Hx - Medical History Cardio: History of: CAD (stent placed 09/24/2014), Hypertension, CA, Cardiovascular Problems (DR WHITT LAST VISIT 10/05/2016.) No history of: Cardiac Dysrhythmia, CHF, Pacemaker, PVD Psychological: No history of: Anxiety Disorders, Depression Neurology: No history of: Seizures HEENT: History of: Eye Problem (GLASSES) Endocrine: History of: Dyslipidemia No history of: Diabetes Mellitus (IDDM), Diabetes Mellitus (NIDDM), Thyroid Disorder Respiratory: History of: COPD No history of: Obstructive Sleep Apnea Comment Only: Respiratory Problems (FLU VAC- YES; PNEU VAC- YES.) Renal: No history of: Renal Problems Gastrointestinal: History of: GI Problems (OCCASIONAL CONSTIPATION) No history of: GERD, Hepatitis Musculoskeletal: History of: Musculoskeletal Problems (arthritis possibly appointment with rug receiving clerk june/2016) Hematology: No history of: Anemia, Bleeding Problems Other: No history of: Cancer - Surgical History Cardiac Surgeries: Sugical HX of: Cardiac Catheterization Patient Denies: Cardiac Surgery HEENT Surgeries: Surgical HX of: Tonsilectomy & Adenoidectomy Abdominal Surgeries: Surgical HX of: Appendectomy (05/2016), Cholecystectomy ( APR 22 2014) Orthopedic Surgeries: Surgical HX of;: Orthopedic Surgery (carpal tunnel bilateral wrists), Total Hip Replacement (right 10/2016) - Family History Family History: Reports;: Family Cancer (mother breast cancer), Family Diabetes (father), Family Heart Disease (father), Family Hypertension (father), Family Stroke (mother) - Social History Smoking Status: Current every day smoker Time spent discussing smoking cessation with patient: 3 to 10 minutes Frequency of Alcohol Use: Rarely Type of Drug Use: None Marital Status: Lives With:: Spouse Functional capacity: independent ambulation Physical Examination Vital Signs Temp Pulse Resp BP Pulse Ox 97.5 F L 74 20 135/85 95 10/24/16 07:18 10/24/16 07:18 10/24/16 07:18 10/24/16 07:18 10/24/16 07:18 General: Present: No Apparent Distress HEENT: Present: PERRL, Normocephaly, Mucus Membranes Moist. Absent: Jaundice, Oral Lesions Neck: Present: Supple Neck, Midline Trachea, No JVD/HJR, No Masses, No Bruit Cardiac: Present: Reg Rate and Rhythm, No Murmur. Absent: Tachycardia, Bradycardia Lungs: Present: Normal Exam, Clear Ascult./Percussion, No Wheeze, Rales, Rhonchi. Absent: Oxygen Neuro: Present: Grossly Intact. Absent: Weakness, Resting Tremor, Essential Tremor Abdomen: Present: Soft, Active Bowel Sounds, No Masses. Absent: Ascites, Tender , Firm Skin: Present: Clear. Absent: Rash, Suspicious Lesions Musculoskeletal: Present: Decreased Range of Motion, No Fluid Collection Extremities: Present: No Clubbing, No Cyanosis, No Edema, Normal Upper Extr. Pulses (3+ bilaterally), Normal Lower Extr. Pulses (3+ bilaterally), Cool ( Lower extremities slightly cool to touch.), Capillary Refill (Normal), Other ( Right hip surgical dressing dry/intact. Drain present.) Result/EKG - Labs CBC & BMP: 10/13/16 13:25 10/13/16 13:25 Lab Results: I have reviewed the past 24 hour labs Labs: Laboratory Results - last 24 hr 10/24/16 10/24/16 06:54 11:16 Urine Color Yellow Urine Appearance Clear Urine pH 7.0 Ur Specific [place] 1.012 Urine Protein Negative Urine Glucose (UA) Negative Urine Ketones Negative Urine Blood Negative Urine Nitrate Negative Urine Bilirubin Negative Urine Urobilinogen < 2.0 H Urine Leukocytes Negative Urine RBC 1 Urine WBC <1 Ur Squamous Epith Cells Occasional Ur Culture Indicated? Not indicated Blood Type B POSITIVE Antibody Screen Negative - Diagnostic Findings Procedure: Chest x-ray: image reviewed by me, report reviewed by me - EKG EKG results: interpreted by me, no acute changes EKG shows: sinus rhythm Karen Valencia Michael, MD, personally performed the services described in this documentation, ascribed by Gabriela Nichols RN in my presence, and it is both accurate and complete .
[2016-10-24] MEDS: ceFAZolin 2,000 MG in PREMIX 1 EACH IV SCH ×2 (16:36→23:18)
[2016-10-24] MEDS: CARVEDILOL 6.25 MG TABLET PO SCH (21:34)
[2016-10-24] MEDS: FONDAPARINUX 2.5 MG/0.5 ML SYRINGE SUBCUT SCH (21:34)
[2016-10-24] MEDS: DOCUSATE SODIUM 100 MG CAPSULE PO SCH (21:34)
[2016-10-24] MEDS: buPROPion SR 150 MG TABLET PO SCH (21:34)
[2016-10-25 07:26] LABS: Basophils # 0.1 10*3/uL (0.0-0.2); Basophils % 0.5 % (0.0-0.8); Eosinophils # 0.2 10*3/uL (0.0-0.87); Eosinophils % 1.9 % (0.00-10.9); Hematocrit 40.1 VOL% (42.0-52.0); Hemoglobin 13.5 GM/DL (14.0-18.0); Immature Granulocytes % 0.5 %; Immature Granulocytes Absolute 0.05 #; Lymphocytes # 2.1 10*3/uL (1.4-4.0); Lymphocytes % 22.3 % (21.2-54.2); Mean Corpuscular HGB Conc 33.7 GM/DL (32-36); Mean Corpuscular Hemoglobin 31 PG (27-34); Mean Corpuscular Volume 92.2 FL (87-102); Mean Platelet Volume 11.6 FL (9.6-12.0); Monocytes # 0.9 10*3/uL (0.11-0.8); Monocytes % 9.8 % (1.7-12.7); Neutrophils # 6.2 10*3/uL (1.4-7.4); Platelet Count 126 T/CUMM (130-400); Red Blood Count 4.35 MC/CUMM (3.8-5.5); Red Cell Distribution Width 14.6 % (9.3-17.3); White Blood Count 9.6 T/CUMM (4-12)
--- NOTE | 2016-10-25 07:32 | EKG Report ---
Stationary ECG Study [facility] Test Date: 10/25/2016 7:34:58 AM Pat Name: MORENITA TINSLEY Department: Room: 322 Gender: M Shank Piece Tacker: [id number] : 1960 Requested by: Yael Ricardo Order Number: [id number] Reading MD: ROXANA MCKINNEY Intervals [place] Rate: 78 P: 62 OK: 189 QRS: 40 QRSD: 90 T: 69 QT: 348 QTc: 381 Interpretive Statements SINUS RHYTHM Electronically Signed On 10-28-16 15:36:28 CDT by ROXANA MCKINNEY [email or web address]
[2016-10-25 07:56] LABS: Calcium 8.4 MG/DL (8.5-10.1); Osmolality,Calculated 275.7 MOS/KG (273-304); Potassium 4.8 MMOL/L (3.5-5.1)
[2016-10-25] MEDS: SELENIUM 200 MCG TABLET PO SCH (08:27)
[2016-10-25] MEDS: ROSUVASTATIN 10 MG TABLET PO SCH (08:28)
[2016-10-25] MEDS: CARVEDILOL 6.25 MG TABLET PO SCH ×2 (08:28→21:04)
[2016-10-25] MEDS: buPROPion SR 150 MG TABLET PO SCH ×2 (08:28→21:03)
[2016-10-25] MEDS: FOLIC ACID 1 MG TABLET PO SCH (08:28)
[2016-10-25] MEDS: DOCUSATE SODIUM 100 MG CAPSULE PO SCH ×2 (08:29→21:04)
[2016-10-25] MEDS: ASPIRIN EC 325 MG TABLET PO SCH (08:29)
[2016-10-25] MEDS: CLOBETASOL 0.05% CREAM 15 GM TUBE TOP SCH (08:32)
--- NOTE | 2016-10-25 08:55 | Orthopedic Progress Note ---
Orthopedics - Subjective Interval history: Comfortable neurovascular intact hemoglobin 13 start PT most likely home with home health Exam - Constitutional Vitals: Period Temp Pulse Resp BP Sys/Corral Pulse Ox Last 24 Hr 97.1 F-98.0 F 61-96 12-20 94-139/51-84 93-100 Results - Labs CBC & BMP: 10/25/16 07:05 10/25/16 07:05
--- NOTE | 2016-10-25 10:01 | Anesthesia Post-Op ---
Anesthesia Post OP - Post Ansesthetic Evaluation Patient seen in post op: Yes Resp: within normal limits CV: within normal limits Mental: within normal limits Temp: within normal limits [id number]: within normal limits Nausea and Vomiting: within normal limits Pain: within normal limits
--- NOTE | 2016-10-25 11:18 | Pathology Report from [facility] ---
[facility] [place] ACCESSION # : [id number] PATIENT NAME : Morenita Tinsley ORDERING DR : CECILIA HELLER JR, MD CLINICAL HX: Right hip osteoarthritis POST-OP DX: Same SPECIMEN INFO: Right hip bone and tissue GROSS DESCRIPTION: The specimen is received in formalin labeled with the patients name and consists of a femoral head measuring 4.5 x 4.5 x 2.5 cm. The articular surfaces are kim and mildly roughened with no subchondral eburnation seen. Cut surfaces are smooth with some softening appreciated. Received separately in the container is a portion of femoral neck measuring 4.0 x 2.5 x 0.6 cm. Video Game Producer tissue submitted in one cassette following decalcification. DIAGNOSIS FOR MORENITA TINSLEY: RIGHT HIP BONE & TISSUE, TOTAL REPLACEMENT: Osteoarthritis. COLLECTED DATE: 10/24/2016 [facility] [place] REPORT DATE: 10/25/2016 ELECTRONICALLY SIGNED BY: Pop Rosado M.D. 10/25/2016 - 9:16:25 MTDJose
--- NOTE | 2016-10-25 11:22 | Cardiology Progress Note ---
I, Gabriela Nichols RN, am scribing for, and in the presence of, Davion Jones MD 11:22. Assessment and Plan - Time spent with patient Time spent with patient: Greater than 30 minutes (1) Status post total hip replacement, right Status: Acute Assessment and plan: Postop day #1 status post total right hip replacement. Will defer primary management to orthopedic surgery. He is hemodynamically stable, and his EKG this morning is unchanged. No new cardiac recommendations. Continue usual postoperative management/rehab. He is doing well from a cardiac standpoint. I am going to drop off of his case at this time. Please call if I can be of further assistance. Current Visit: Yes (2) Coronary artery disease Status: Chronic Assessment and plan: Continue current plan of care with ASA and statin. Current Visit: No (3) History of NM (myocardial infarction) Status: Acute Assessment and plan: History of NSTEMI in September 2014 and is now status post right coronary artery stenting. Stable at this time, and he is without anginal complaint. Current Visit: Yes (4) Smoker Status: Chronic Assessment and plan: Continue bupropion. Discussed merits of tobacco cessation and alternatives for tobacco use. The patient seems motivated to quit smoking. Current Visit: No (5) Dyslipidemia Status: Chronic Assessment and plan: Continue statin. Current Visit: Yes (6) Hypertension Status: Chronic Assessment and plan: Relatively well controlled. Continue current plan of care. Current Visit: Yes (7) COPD (chronic obstructive pulmonary disease) Status: Chronic Assessment and plan: Appears stable. Continue current plan of care. 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 Schultz is a 56 year old white male with risk factor significant for: hypertension, hyperlipidemia, known history of CAD, tobaccoism, sedentary lifestyle, and obesity. He is status post NSTEMI and subsequent stenting of proximal right coronary artery in September 2014. He has not had any anginal complaint since that time. He was last seen by Dr. Whitt at [facility] on October 03 for preoperative cardiovascular exam prior to plan total right hip replacement. No complaints and it was noted patient's last stress test in September 2015 which revealed no ischemia or EKG changes, and he had no symptoms. Low risk for intraoperative cardiovascular event. Patient presented to [facility] same day unit on the morning of September 24 for elective hip replacement, and procedure completed without event. Cardiology was consulted for perioperative cardiac medical management. October: Mr. Schultz is awake and alert this morning. He is having some moderate discomfort right now at surgical site, and nursing staff is present at bedside to administer pain medication. Right hip site is without bleed or hematoma. Appetite is good, and he is not having any nausea or vomiting. No chest pain, dyspnea, or other anginal complaint. Systolic BP 115-130 mmHg. Twelve-lead EKG this morning demonstrates sinus rhythm with regular rate, and unchanged from previous tracings. Labs reviewed this morning. Postop H&H stable. Electrolytes within acceptable range, and renal function remained stable. Current Medications Hydrocodone Bitart/Acetaminophen ([place] 7.5-325) 2 tablet PO Q4H PRN PRN Reason: Moderate Pain unrelieved by 1 Hydrocodone Bitart/Acetaminophen ([place] 7.5-325) 1 tablet PO Q4H PRN PRN Reason: Pain Moderate (4-7) Last Admin: 10/25/16 08:30 Dose: 1 tablet Aspirin () 325 mg PO DAILY [facility] Last Admin: 10/25/16 08:29 Dose: 325 mg Bisacodyl (Dulcolax Supp) 10 mg RECTAL DAILY PRN PRN Reason: Constipation Bupropion HCl (Wellbutrin Sr) 150 mg PO BID [facility] Last Admin: 10/25/16 08:28 Dose: 150 mg Carvedilol (Coreg) 6.25 mg PO BID [facility] Last Admin: 10/25/16 08:28 Dose: 6.25 mg Clobetasol Propionate (Temovate Cream) 1 applic TOP DAILY [facility] Last Admin: 10/25/16 08:32 Dose: Not Given Diphenhydramine HCl (Benadryl Cap) 25 mg PO Q6H PRN PRN Reason: Itching Docusate Sodium (Colace Cap) 100 mg PO BID [facility] Last Admin: 10/25/16 08:29 Dose: 100 mg Folic Acid () 1 mg PO DAILY [facility] Last Admin: 10/25/16 08:28 Dose: 1 mg Fondaparinux (Arixtra) 2.5 mg SUBCUT Q24H [facility] Last Admin: 10/24/16 21:34 Dose: 2.5 mg Hydromorphone HCl (Dilaudid Inj) 1 mg IV Q3H PRN PRN Reason: Pain Severe (8-10) Hydromorphone/Sodium Chloride (Dilaudid Weight Control Lecturer) 30 mg IV AGITATOR OPERATOR [facility] PRN Reason: Protocol Last Admin: 10/24/16 13:57 Dose: 30 mg Lactulose (Chronulac) 30 gm PO DAILY PRN PRN Reason: Constipation Magnesium Hydroxide (Milk Of Magnesia) 30 ml PO Q6H PRN PRN Reason: Constipation Naloxone HCl (Narcan) 0.04 mg IV Q2M PRN PRN Reason: Opiate Reversal Adalimumab [Humira] (40 Mg) 40 mg SQ Q14D [facility] Ondansetron HCl (Zofran Inj) 4 mg IV Q4H PRN PRN Reason: Nausea/Vomiting Promethazine HCl (Phenergan Inj) 25 mg IM Q6H PRN PRN Reason: Nausea/Vomiting Rosuvastatin Calcium (Crestor) 5 mg PO DAILY [facility] Last Admin: 10/25/16 08:28 Dose: 5 mg Selenium () 100 mcg PO DAILY [facility] Last Admin: 10/25/16 08:27 Dose: 100 mcg Senna/Docusate Sodium (Senokot S) 1 tablet PO DAILY PRN PRN Reason: Constipation Temazepam (Restoril) 7.5 mg PO BEDTIME PRN PRN Reason: Sleep Exam (Progress Note) - Constitutional Vitals: Period Temp Pulse Resp BP Sys/Corral Pulse Ox Last 24 Hr 97.1 F-98.0 F 61-96 12-20 94-139/51-84 93-100 Exam: General: Present: No Apparent Distress, overweight HEENT: Present: PERRL, Normocephaly, Mucus Membranes Moist. Absent: Jaundice, Oral Lesions Neck: Present: Supple Neck, Midline Trachea, No JVD/HJR, No Masses, No Bruit Cardiac: Present: Reg Rate and Rhythm, No Murmur. Absent: Tachycardia, Bradycardia Lungs: Present: Normal Exam, Clear Ascult./Percussion, No Wheeze, Rales, Rhonchi. Absent: Oxygen Neuro: Present: Grossly Intact. Absent: Weakness, Resting Tremor, Essential Tremor Abdomen: Present: Soft, Active Bowel Sounds, No Masses. Absent: Ascites, Tender , Firm Skin: Present: Clear, warm, dry. Absent: Rash, Suspicious Lesions Musculoskeletal: Present: Decreased Range of Motion, No Fluid Collection Extremities: Present: No Clubbing, No Cyanosis, No Edema, Normal Upper Extr. Pulses (3+ bilaterally), Normal Lower Extr. Pulses (3+ bilaterally), Cool ( Lower extremities slightly cool to touch.), Capillary Refill (Normal), Other ( right hip dressing dry/intact.) Result/EKG - Labs CBC & BMP: 10/25/16 07:05 10/25/16 07:05 Lab Results: I have reviewed the past 24 hour labs Labs: Laboratory Results - last 24 hr 10/24/16 10/25/16 10/25/16 11:16 07:05 07:05 WBC 9.6 RBC 4.35 Hgb 13.5 L Hct 40.1 L MCV 92.2 MCH 31 MCHC 33.7 RDW 14.6 Plt Count 126 L MPV 11.6 Neut % (Auto) 65.0 Lymph % (Auto) 22.3 [place] % (Auto) 9.8 Eos % (Auto) 1.9 Baso % (Auto) 0.5 Neut # (Auto) 6.2 Lymph # (Auto) 2.1 [place] # (Auto) 0.9 H Eos # (Auto) 0.2 Baso # (Auto) 0.1 Immature Gran % 0.5 Nucleated RBC % 0.0 Immature Gran # 0.05 Nucleated RBCs # 0.00 Sodium 138 Potassium 4.8 Chloride 102 Carbon Dioxide 31 Anion Gap 9.8 BUN 11 Creatinine 1.00 GFR Calculation 102 BUN/Creatinine Ratio 11.00 Glucose 126 H Calculated Osmolality 275.7 Calcium 8.4 L Urine Color Yellow Urine Appearance Clear Urine pH 7.0 Ur Specific [place] 1.012 Urine Protein Negative Urine Glucose (UA) Negative Urine Ketones Negative Urine Blood Negative Urine Nitrate Negative Urine Bilirubin Negative Urine Urobilinogen < 2.0 H Urine Leukocytes Negative Urine RBC 1 Urine WBC <1 Ur Squamous Epith Cells Occasional Ur Culture Indicated? Not indicated - EKG EKG results: interpreted by me, no acute changes EKG shows: sinus rhythm Karen Valencia Michael, MD, personally performed the services described in this documentation, ascribed by Gabriela Nichols RN in my presence, and it is both accurate and complete .
[2016-10-25] MEDS: HYDROmorphone PCA 30 MG/30 ML SYRINGE IV SCH (12:59)
[2016-10-25] MEDS: FONDAPARINUX 2.5 MG/0.5 ML SYRINGE SUBCUT SCH (21:04)
[2016-10-26] MEDS: buPROPion SR 150 MG TABLET PO SCH ×2 (09:19→21:28)
[2016-10-26] MEDS: CARVEDILOL 6.25 MG TABLET PO SCH ×2 (09:19→21:28)
[2016-10-26] MEDS: CLOBETASOL 0.05% CREAM 15 GM TUBE TOP SCH (09:19)
[2016-10-26] MEDS: DOCUSATE SODIUM 100 MG CAPSULE PO SCH ×2 (09:19→21:28)
[2016-10-26] MEDS: ASPIRIN EC 325 MG TABLET PO SCH (09:19)
[2016-10-26] MEDS: FOLIC ACID 1 MG TABLET PO SCH (09:19)
[2016-10-26] MEDS: SELENIUM 200 MCG TABLET PO SCH (09:19)
[2016-10-26] MEDS: ROSUVASTATIN 10 MG TABLET PO SCH (09:19)
--- NOTE | 2016-10-26 09:29 | Orthopedic Progress Note ---
Orthopedics - Subjective Interval history: Doing well mobilizing fairly easily continue PT today likely home tomorrow with home health Exam - Constitutional Vitals: Period Temp Pulse Resp BP Sys/Corral Pulse Ox Last 24 Hr 97.4 F-99.5 F 77-94 17-20 103-129/42-74 91-98 Results - Labs CBC & BMP: 10/25/16 07:05 10/25/16 07:05
[2016-10-26] MEDS: FONDAPARINUX 2.5 MG/0.5 ML SYRINGE SUBCUT SCH (21:28)
[2016-10-27] MEDS ORDERED: Adalimumab [Humira] 40 MG SQ SCH (08:00)
--- NOTE | 2016-10-27 08:41 | Orthopedic Progress Note ---
Orthopedics - Subjective Interval history: Mobilizing well no problems no swelling distally ready for discharge to home Exam - Constitutional Vitals: Period Temp Pulse Resp BP Sys/Corral Pulse Ox Last 24 Hr 96.5 F-99.1 F 79-103 16-22 122-137/62-71 93-96 Results - Labs CBC & BMP: 10/25/16 07:05 10/25/16 07:05 Specialty Discharge - Follow Up or Referrals Follow up with: Jose D Nash Jr., MD [Physician] -
--- NOTE | 2016-10-27 08:44 | Discharge Summary ---
Hospital Course - Hospital Course Hospital Course: Admitted for elective hip replacement on right discharged home Diagnosis - Discharge Diagnosis (1) Osteonecrosis of right hip Status: Acute Specialty Discharge - Follow Up or Referrals Follow up with: Jose D Nash Jr., MD [Physician] - Discharge Plan - Discharge Data Disposition: Home Health Service Condition at Discharge: Stable Discharge Diet: advance to your usual diet Activity: ambulate only with your walker, as per physical therapy, increase activity as tolerated Hygiene: may shower, keep area(s) dry Weight Bearing at Discharge: weight bear as tolerated - Discharge Medications New HYDROcodone/ACETAMIN 7.5-325 [[place] 7.5-325] 1 tablet PO Q4H PRN #30 tablet PRN Reason: Pain Moderate (4-7) Continue Carvedilol [Coreg] 6.25 mg PO BID #60 tablet Rosuvastatin Calcium [Crestor] 2.5 mg PO MOWEFR Clobetasol 0.05% Cream [Temovate 0.0% Cream] 1 applic TOP DAILY Aspirin [Ecotrin] 325 mg PO DAILY Methotrexate Tab 15 mg PO Q7DAY Folic Acid Tab 1 mg PO DAILY Adalimumab [Humira] 40 mg SQ Q14D Selenium [Selenium Tab] 100 mcg PO BID buPROPion HCl [Bupropion HCl Sr] 150 mg PO BID Sennosides/Docusate Sodium [Stool Softener Tablet] 1 each PO DAILY PRN PRN Reason: Constipation - Follow Up or Referral Follow Up: Jose D Nash Jr., MD [Physician] - - Forms/Instructions Additional Discharge Instructions: Discharged home with home health continue home medications [place] 7.5 as needed for pain #30 no refills aspirin once a day. Advancing towards weight-bear as tolerated with hip precautions nena to be removed and wound Steri-Stripped Monday, November 07. Follow-up with [facility] 4 weeks. Give Arixtra prior to discharge today Exam - Constitutional Vitals: Period Temp Pulse Resp BP Sys/Corral Pulse Ox Last 24 Hr 96.5 F-99.1 F 79-103 16-22 122-137/62-71 93-96 DS: Provider Date of admission: 10/24/16 05:30 Primary care physician: . No PCP Attending physician on admission: Jose D Nash Jr., MD Consults: 10/24/16 11:24 Consult to Case Mgmt/Social Srvs [CONS] Routine Reason for Case Mgmt/Social Srvs: Rehab Home Health Equipment Consult Comment: Bedside Commode, CPM, Walker Consult to Occupational Therapy [CONS] Routine Reason for Occupational Therapy: Evaluate and Treat Consult Comment: ADL's Consult to Physical Therapy [CONS] Routine Reason for Physical Therapy: Evaluate and Treat Gait Training Consult Comment: Advance WBAT with hip precautions 10/24/16 11:26 Consult to Physician [CONS] Routine Comment: Consulting Provider: Dain Whitt Consulting Provider Notified: Yes When should Consulting Provider be notified: Now Person Notified: ellis [email or web address] Date Notified: 10/24/16 Time Notified: 12:36 Discharging clinician: Jose D Nash Jr., MD
[2016-10-27] MEDS: SELENIUM 200 MCG TABLET PO SCH (09:00)
[2016-10-27] MEDS: DOCUSATE SODIUM 100 MG CAPSULE PO SCH (09:01)
[2016-10-27] MEDS: buPROPion SR 150 MG TABLET PO SCH (09:01)
[2016-10-27] MEDS: ASPIRIN EC 325 MG TABLET PO SCH (09:01)
[2016-10-27] MEDS: ROSUVASTATIN 10 MG TABLET PO SCH (09:01)
[2016-10-27] MEDS: FOLIC ACID 1 MG TABLET PO SCH (09:01)
[2016-10-27] MEDS: CLOBETASOL 0.05% CREAM 15 GM TUBE TOP SCH (09:01)
[2016-10-27] MEDS: CARVEDILOL 6.25 MG TABLET PO SCH (09:01)
[2016-10-27] MEDS: FONDAPARINUX 2.5 MG/0.5 ML SYRINGE SUBCUT SCH (10:59)
[2016-10-27 11:15] VITALS: BP 113/70
--- NOTE | 2016-10-31 15:21 | Operative Note ---
DATE OF SURGERY: 10/24/2016 PREOPERATIVE DIAGNOSIS: OSTEONECROSIS, RIGHT HIP. POSTOPERATIVE DIAGNOSIS: SAME. OPERATIVE PROCEDURE: RIGHT TOTAL HIP (S-ROM). SURGEON: Jose D Nash Jr., MD ANESTHESIA: Spinal. INDICATIONS: A 56-year-old white male with progressively worsening symptoms of pain. Function limitation is diagnosed clinically as well as on x-ray and MRI as having total head involvement osteonecrosis. He was presented with treatment options. He is attempted to manage this non-operatively but that has become unsuccessful. His pain is too severe for him to continue working. He presents today for elective right total hip. OPERATIVE PROCEDURE: The patient was taken to the operating room and under spinal anesthesia, placed in the left lateral decubitus position. The right hip and lower extremity were prepped and draped in a usual sterile manner, and received Ancef and vancomycin preoperatively. A curvilinear incision was made over the posterolateral aspect of the right hip. Sharp dissection was carried down through skin and subcutaneous tissue. The gluteus and IT band were split. The hip internally rotated, and the short rotators and capsule were reflected off the back of the proximal femur. The capsule was preserved for later repair. The head was dislocated and resected. The acetabulum exposed, sequentially reamed up to 51 and a 52 cup press-fit in place, it was secured with a single screw, and a 10-degree all polyethylene liner placed. The proximal femur was then exposed and prepared for the S-ROM. The distal diameter of 13 with an 18B large sleeve. The stem used was an 18/30 and 160 with a 36 standard neck plus, lateralized. Trial reduction selecting a 0 head. After removal of the trial components, the permanent sleeve and stem were inserted and again trial reduction selecting the 0 head. This was then secured on the taper and relocated. The limb was stable through range of motion. The limb length was felt to be very near to equal. The wound was then irrigated and closed in a standard fashion over two 1/8th-inch Hemovac drains. #1 Vicryl was used for the posterior capsule and IT band layers, 2-0 Vicryl for the subcutaneous layer, and nena for skin. Intraoperative film confirmed satisfactory postop position of his right total hip. Dressings were applied, he rolled supine, abduction pillow placed, taken to the recovery room in stable condition. [facility]
== END 2016-10-27 11:40 | disposition home health service (06) | DRG 470 ==
LOC: N.SDSINP 05:30 → N.OR 05:30 → N.SDSINP 05:31 → EDSTATUS 10:00 → N.3E 11:24
PROVIDERS: ADMIT Orthopaedic Surgery; ATTEND Orthopaedic Surgery